=== PATIENT | female | born 1990 | race Caucasian/White ===

== ENCOUNTER 2020-05-04 12:58 | Emergency (ER) | payer SELFPAY ==
--- NOTE | 2020-05-04 13:25 | EDM.PDOC ---
ED HPI GENERAL MEDICAL PROBLEM - General Chief Complaint: Skin Complaint Stated Complaint: WOUND ON FACE Time Seen by Provider: 05/04/20 13:06 Source of Information: Reports: Patient History Limitations: Reports: No Limitations - History of Present Illness INITIAL COMMENTS - FREE TEXT/NARRATIVE: The patient presents with an infection to the right side of her face. She said a couple days ago she used a tool to pop some zits and then it got infected on the right jaw. She has no fever or chills. She has a lesion to the right side fo her face. She is not allergic to any antibiotics. 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 Social & Family History - Tobacco Use Tobacco Use Status *Q: Current Every Day Tobacco User Years of Tobacco use: 10 Packs/Tins Daily: 1 - Caffeine Use Caffeine Use: Reports: Coffee, Soda - Recreational Drug Use Recreational Drug Use: Yes Recreational Drug Type: Reports: Marijuana/Hashish ED ROS GENERAL - Review of Systems Review Of Systems: See Below Constitutional: Reports: No Symptoms HEENT: Reports: Other (Right sided facial swelling and erythema) Respiratory: Reports: No Symptoms Cardiovascular: Reports: No Symptoms Endocrine: Reports: No Symptoms GI/Abdominal: Reports: No Symptoms : Reports: No Symptoms Musculoskeletal: Reports: No Symptoms ED EXAM, SKIN/RASH Exam: See Below Exam Limited By: No Limitations General Appearance: Alert, No Apparent Distress Ears: Normal External Exam Nose: Normal Inspection Head: Other (Right sided facial swelling with erythema and a scab to mandible area.) Neck: Normal Inspection, Supple, Non-Tender Respiratory/Chest: No Respiratory Distress Course - Vital Signs Last Recorded V/S: Last Vital Signs Temp 97.2 F 05/04/20 13:00 Pulse 86 05/04/20 13:00 Resp 16 05/04/20 13:00 BP 119/91 H 05/04/20 13:00 Pulse Ox 96 05/04/20 13:00 - Re-Assessments/Exams Free Text/Narrative Re-Assessment/Exam: 05/04/20 13:23 I will get her on some doxycycline. There is no fluctuant area to open up yet. Departure - Departure Time of Disposition: 13:30 Disposition: Home, Self-Care 01 Condition: Good Clinical Impression: Cellulitis, face - Discharge Information *PRESCRIPTION DRUG MONITORING PROGRAM REVIEWED*: Not Applicable *COPY OF PRESCRIPTION DRUG MONITORING REPORT IN PATIENT ИРИНА: Not Applicable Prescriptions: Doxycycline [Vibra-Tabs] 100 mg PO Q12HR #20 tab Referrals: PCP,None [Primary Care Provider] - Marlene Allen NP [Nurse Practitioner] - 1 Week Additional Instructions: Take the doxycycline 2 times per day for 10 days. Wash the affected area 2 times per day with warm soapy water and apply antibiotic ointment after. Put warm compresses on that affected area 3 to 5 times per day for 5 days. Please return if you are worse. Sepsis Event Note (ED) - Evaluation Sepsis Screening Result: No Definite Risk - Focused Exam Vital Signs: Vital Signs Temp Pulse Resp BP Pulse Ox 05/04/20 13:00 97.2 F 86 16 119/91 H 96
== END 2020-05-04 13:35 | disposition home or self-care (01) ==
LOC: JD.ED 12:58
DX: L03.211 Cellulitis of face (principal); Z72.0 Tobacco use
CPT/HCPCS: 99283